=== PATIENT | female | born 1975 | race Caucasian/White ===

== ENCOUNTER 2017-04-24 23:46 | Emergency (ER) | payer BC, OTHER ==
[~2017-04-24] VITALS: Ht 167.6 cm; Wt 113.4 kg
[2017-04-24 23:46] VITALS: BP_SYST 133
[2017-04-25 00:25] LABS: BASOPHILS # (AUTO) 0.1 K/uL (0.0-0.2); BASOPHILS % (AUTO) 1.4 % (0.0-2.0); EOSINOPHILS # (AUTO) 0.4 K/uL (0.0-0.4); EOSINOPHILS % (AUTO) 4.3 % (0.0-4.0); HEMATOCRIT 43.6 % (36-48); HEMOGLOBIN 14.4 g/dL (12.0-16.0); LYMPHOCYTES # (AUTO) 2.5 K/uL (1.0-5.5); LYMPHOCYTES % (AUTO) 25.8 % (20.5-51.5); MEAN CORPUSCULAR HEMOGLOBIN 30 pg (27-31); MEAN CORPUSCULAR HGB CONC 33 % (32-36); MEAN CORPUSCULAR VOLUME 90 fL (79.0-98.0); MONOCYTES # (AUTO) 0.5 K/uL (0.0-1.0); MONOCYTES % (AUTO) 5.3 % (1.7-9.3); NEUTROPHILS # (AUTO) 6.2 K/uL (1.8-7.7); NEUTROPHILS % (AUTO) 63.2 % (40.0-70.0); PLATELET COUNT (AUTO) 257 K/uL (130-430); RED BLOOD CELL COUNT(AUTO) 4.83 MIL/uL (4.2-6.2); RED CELL DISTRIBUTION WIDTH 11.7 % (9.0-15.0); WHITE BLOOD COUNT (AUTO) 9.7 K/uL (4.8-10.8)
[2017-04-25 00:27] LABS: CALCIUM 8.9 mg/dL (8.4-11.0); CREATININE 1.11 mg/dL (0.55-1.30)
[2017-04-25 00:31] LABS: TOTAL BILIRUBIN 0.3 mg/dL (0.0-1.0)
[2017-04-25 00:39] LABS: BILIRUBIN,URINE NEGATIVE (NEGATIVE); CLARITY/URINE CLEAR (CLEAR); COLOR,URINE YELLOW (YELLOW); GLUCOSE,URINE NEGATIVE (NEGATIVE); KETONES,URINE NEGATIVE (NEGATIVE); LEUKOCYTE ESTERASE ,URINE 1+ (NEGATIVE); NITRITE, URINE NEGATIVE (NEGATIVE); PH,URINE 5.5 (5.0-8.0); PROTEIN URINE TRACE (NEGATIVE); UROBILINOGEN,URINE 0.2 (0.2-1.0)
[2017-04-25 00:42] LABS: BLOOD, URINE TRACE (NEGATIVE)
[2017-04-25] MEDS ORDERED: KCL 40 mEq in D5W 1000 mL 1,000 ML IV ONE (00:45)
[2017-04-25 00:47] LABS: BACTERIA,URINE MODERATE /HPF (None Seen); FINE GRANULAR CASTS,URINE 0-10 /LPF (None Seen); RBC,URINE 0-3 /HPF (0-3)
[2017-04-25 00:50] LABS: PROTHROMBIN TIME 11.1 SECS (9.5-12.5)
[2017-04-25 00:55] LABS: BARBITURATE, URINE NEGATIVE (NEG <=200)
[2017-04-25 00:56] LABS: BENZODIAZEPINE, URINE NEGATIVE (NEG <=150); CANNABINOID, URINE NEGATIVE (NEG <=50); COCAINE, URINE NEGATIVE (NEG <=150); METHAMPHETAMINES SCREEN,URINE NEGATIVE (NEG <=500); OPIATE, URINE POSITIVE (NEG <=100); PHENCYCLIDINE SCREEN,URINE NEGATIVE (NEG <=25); UR TRICYCLIC ANTIDEPRESSANTS NEGATIVE (NEG <=300); URINE AMPHETAMINE NEGATIVE (NEG <=500); URINE METHADONE NEGATIVE (NEG <=200); URINE OXYCODONE SCREEN NEGATIVE (NEG <=100); URINE PROPOXYPHENE SCREEN NEGATIVE (NEG <=300)
[2017-04-25] MEDS ORDERED: KCL 40mEq in D5/0.45NS 1000 mL 1,000 ML IV ONE ×2 (01:00→01:09)
[2017-04-25 04:50] LABS: BASOPHILS % (AUTO) 1.1 % (0.0-2.0); EOSINOPHILS % (AUTO) 1.3 % (0.0-4.0); HEMATOCRIT 40.1 % (36-48); HEMOGLOBIN 13.5 g/dL (12.0-16.0); LYMPHOCYTES % (AUTO) 17.3 % (20.5-51.5); MEAN CORPUSCULAR HEMOGLOBIN 30 pg (27-31); MEAN CORPUSCULAR HGB CONC 34 % (32-36); MEAN CORPUSCULAR VOLUME 89 fL (79.0-98.0); MONOCYTES % (AUTO) 4.5 % (1.7-9.3); NEUTROPHILS % (AUTO) 75.8 % (40.0-70.0); PLATELET COUNT (AUTO) 241 K/uL (130-430); RED BLOOD CELL COUNT(AUTO) 4.51 MIL/uL (4.2-6.2); WHITE BLOOD COUNT (AUTO) 10.3 K/uL (4.8-10.8)
[2017-04-25 04:51] LABS: BASOPHILS # (AUTO) 0.1 K/uL (0.0-0.2); EOSINOPHILS # (AUTO) 0.1 K/uL (0.0-0.4); LYMPHOCYTES # (AUTO) 1.8 K/uL (1.0-5.5); MONOCYTES # (AUTO) 0.5 K/uL (0.0-1.0); NEUTROPHILS # (AUTO) 7.8 K/uL (1.8-7.7)
[2017-04-25 04:54] LABS: ALCOHOL, BLOOD 56 mg/dL (<10)
[2017-04-25 05:00] LABS: ACETAMINOPHEN 18 ug/mL (1-30)
[2017-04-25] MEDS ORDERED: cefTRIAXone 1 GM in D5W 50 ML IV ONE (05:45)
[2017-04-25] MEDS ORDERED: cefTRIAXone 1 GM VIAL ONE (05:49)
[2017-04-25] MEDS ORDERED: ONDANSETRON HCL 4 MG/2 ML VIAL IVP ONE (08:15)
[2017-04-25 09:29] VITALS: BP_SYST 98
== END 2017-04-25 09:44 ==
LOC: SED 23:46
DX: T39.1X2A Poisoning by 4-Aminophenol derivatives, intentional self-harm, initial encounter (principal); F32.9 Major depressive disorder, single episode, unspecified; N39.0 Urinary tract infection, site not specified; Y92.89 Other specified places as the place of occurrence of the external cause
CPT/HCPCS: 36415; 71010; 80053; 80307; 81000; 81025; 82550; 84484; 85025; 85610; 85730; 87086; 93005; 96365; 96366; 96368; 96375; 99285; G0480; G0481; G0482; J0696; J2405; J7060

== ENCOUNTER 2017-06-01 20:23 | Emergency (ER) | payer BC ==
[~2017-06-01] VITALS: Ht 162.6 cm; Wt 99.3 kg
--- NOTE | 2017-06-01 20:24 | NUR ---
Patient to ER bed 8 to gown for evaluation. Side rails up. Report given to Ruby VARGHESE.
[2017-06-01 20:25] VITALS: BP_SYST 101
--- NOTE | 2017-06-01 20:30 | NUR ---
Patient brought to ER by BLS from home C/O 06/26 low back pain. Patient states that she had a back injury about 3 months ago and today it flared up post telescope maintenance. Patient states "i can't move" flat in bed, ridgid posture. AAOx4, unlabored breathing, no signs of acute distress.
--- NOTE | 2017-06-01 20:34 | NUR ---
ER MD Spear at [facility] efor evaluation
[2017-06-01] MEDS ORDERED: KETOROLAC TROMETHAMINE 60 MG/2 ML VIAL IM ONE (20:45)
--- NOTE | 2017-06-01 21:20 | NUR ---
Patient reports pain 4/10 15 minutes after administration of toradol. No adverse reactions noted. Will continue to monitor.
[2017-06-01] MEDS ORDERED: LORazepam 2 MG/ML VIAL (FOR ER USE) IM ONE (22:00)
--- NOTE | 2017-06-01 22:45 | NUR ---
30 minutes after administration of Ativan. No adverse reactions noted. Will continue to monitor.
[2017-06-01 22:48] VITALS: BP_SYST 114
--- NOTE | 2017-06-01 22:48 | NUR ---
Patient given written and verbal discharge instructions and verbalizes understanding. ER MD Spear discussed with patient the results and treatment provided. Patient in stable condition. ID arm band removed. Patient educated on pain management and to follow up with PMD. Pain Scale 0/10. Opportunity for questions provided and answered.
== END 2017-06-01 22:48 | disposition home or self-care (01) ==
LOC: SED 20:23
DX: G89.29 Other chronic pain (principal); M54.9 Dorsalgia, unspecified
CPT/HCPCS: 96372; 99284; J1885; J2060